=== PATIENT | female | born 1985 | race Caucasian/White ===

== ENCOUNTER 2022-02-14 10:00 | Inpatient (IN) | payer BC ==
[2022-02-14] MEDS ORDERED: CITRIC ACID/SODIUM CITRATE 30 ML UNIT-DOSE CUP PO ONE (10:33)
[2022-02-14] MEDS: ELECTROLYTE-148 SOLN 1,000 ML IV SCH (11:00)
[2022-02-14 12:18] VITALS: BMI 31.7
[2022-02-14] MEDS ORDERED: OXYTOCIN 20 UNITS in 0.9% NS 40 UNIT/2,000 ML INFUS.BAG IV ONE (13:00)
[2022-02-14] MEDS ORDERED: MIDAZOLAM HCL 2 MG/2 ML SINGLE DOSE VIAL ONE (13:02)
[2022-02-14] MEDS ORDERED: ONDANSETRON 4 MG/2 ML VIAL ONE (13:02)
[2022-02-14] MEDS ORDERED: CLINDAMYCIN PHOSPHATE 900 MG/6 ML VIAL IVPB ONE (13:02)
[2022-02-14] MEDS ORDERED: morphine SULFATE/PF 1 MG/2 ML (2cc Syringe - QUVA) ONE (13:02)
[2022-02-14] MEDS ORDERED: METOCLOPRAMIDE HCL INJECTION 10 MG/2 ML VIAL ONE (13:02)
[2022-02-14] MEDS ORDERED: ONDANSETRON 4 MG/2 ML VIAL IVPUSH PRN (14:12)
[2022-02-14] MEDS ORDERED: ACETAMINOPHEN 1000 MG/100 ML BAG IVPB PRN (14:13)
[2022-02-14] MEDS ORDERED: IBUPROFEN 800 MG/8 ML IJ IVPB PRN (14:13)
[2022-02-14] MEDS ORDERED: METHYLERGONOVINE MALEATE 0.2 MG/1 ML AMP IM PRN (14:26)
[2022-02-14] MEDS ORDERED: ACETAMINOPHEN 325 MG TABLET (FP) PO PRN (14:26)
[2022-02-14 15:02] LABS: CORD BASE EXCESS -4.1 mmol/L (0-2); CORD HCO3 20.8 mmHg (20-29); CORD PCO2 37.8 mmHg (30-78); CORD pH 7.359 (7.14-7.44)
[2022-02-14 15:05] LABS: CORD HCO3 21.5 mmHg (20-29); CORD PCO2 45.5 mmHg (30-78); CORD pH 7.292 (7.14-7.44)
[2022-02-14] MEDS: OXYTOCIN 20 UNITS in 0.9% NS 20 UNIT/1,000 ML INFUS.BAG IV SCH (16:14)
[2022-02-14] MEDS ORDERED: OXYTOCIN 20 UNITS in 0.9% NS 20 UNIT/1,000 ML INFUS.BAG IV ONE (16:15)
[2022-02-14] MEDS ORDERED: CLINDAMYCIN 600MG PREMIX IVPB 600 MG/50 ML BAG IVPB SCH (18:00)
[2022-02-14] MEDS: CLINDAMYCIN 600MG PREMIX IVPB 600 MG/50 ML BAG IVPB SCH (18:30)
[2022-02-14] MEDS: INSULIN SLIDING SCALE (NOVOLOG) 1 VIAL SQ SCH ×2 (18:35→22:04)
[2022-02-15] MEDS: CLINDAMYCIN 600MG PREMIX IVPB 600 MG/50 ML BAG IVPB SCH ×2 (01:38→10:05)
[2022-02-15] MEDS: OXYTOCIN 20 UNITS in 0.9% NS 20 UNIT/1,000 ML INFUS.BAG IV SCH (01:40)
[2022-02-15] MEDS ORDERED: oxyCODONE HCL 5 MG TABLET PO PRN (02:27)
[2022-02-15] MEDS: LEVOTHYROXINE NA 112 MCG TABLET (FP) PO SCH (06:33)
[2022-02-15] MEDS: INSULIN SLIDING SCALE (NOVOLOG) 1 VIAL SQ SCH ×4 (06:34→21:18)
[2022-02-15 07:27] LABS: BASO % 0.2 % (0-2.0); EOS % 0.2 % (0-4.5); HEMATOCRIT 34.4 % (32.4-45.2); HEMOGLOBIN 11.6 GM/dL (10.7-15.3); LYMPH % 18.4 % (8-40); MCH 28.1 pg (25.7-33.7); MCHC 33.6 g/dl (32.0-36.0); MEAN CELL VOLUME 83.6 fl (80-96); MEAN PLT VOLUME 8.5 fl (7.5-11.1); MONO % 7.2 % (3.8-10.2); PLATELET COUNT 265 10^3/uL (134-434); RBC 4.11 M/mm3 (3.60-5.2); RDW 13.8 % (11.6-15.6); WHITE BLOOD COUNT 11.9 K/mm3 (4.0-10.0)
[2022-02-15] MEDS: ENOXAPARIN NA (PORCINE) 40 MG/0.4 ML DISP.SYRIN SQ SCH (10:05)
[2022-02-15] MEDS: oxyCODONE HCL 5 MG TABLET PO PRN ×2 (10:13→22:01)
[2022-02-15] MEDS: SIMETHICONE 80 MG TAB.CHEW (FP) PO PRN ×3 (10:13→22:01)
[2022-02-15] MEDS: ELECTROLYTE-148 SOLN 1,000 ML IV SCH (11:28)
[2022-02-15] MEDS ORDERED: BISACODYL 10 MG SUPP.RECT RC PRN (14:27)
[2022-02-15] MEDS: IBUPROFEN 600 MG TABLET (FP) PO PRN (17:24)
[2022-02-16] MEDS: IBUPROFEN 600 MG TABLET (FP) PO PRN ×4 (00:56→17:41)
[2022-02-16] MEDS: SIMETHICONE 80 MG TAB.CHEW (FP) PO PRN ×4 (00:58→21:59)
[2022-02-16] MEDS: LEVOTHYROXINE NA 112 MCG TABLET (FP) PO SCH (06:52)
[2022-02-16] MEDS: INSULIN SLIDING SCALE (NOVOLOG) 1 VIAL SQ SCH ×4 (08:44→22:10)
[2022-02-16] MEDS: ENOXAPARIN NA (PORCINE) 40 MG/0.4 ML DISP.SYRIN SQ SCH (11:26)
[2022-02-16] MEDS ORDERED: PANTOPRAZOLE 20 MG TABLET PO PRN (15:49)
[2022-02-16] MEDS: oxyCODONE HCL 5 MG TABLET PO PRN (21:59)
[2022-02-17] MEDS: IBUPROFEN 600 MG TABLET (FP) PO PRN ×2 (03:04→08:00)
[2022-02-17] MEDS: SIMETHICONE 80 MG TAB.CHEW (FP) PO PRN ×2 (03:05→08:01)
[2022-02-17] MEDS: LEVOTHYROXINE NA 112 MCG TABLET (FP) PO SCH (06:31)
[2022-02-17] MEDS ORDERED: metFORMIN HCL 500 MG TABLET (FP) PO SCH (07:00)
[2022-02-17 07:29] LABS: BASO % 0.3 % (0-2.0); EOS % 2.2 % (0-4.5); HEMATOCRIT 32.7 % (32.4-45.2); HEMOGLOBIN 10.9 GM/dL (10.7-15.3); LYMPH % 18.5 % (8-40); MCH 27.9 pg (25.7-33.7); MCHC 33.3 g/dl (32.0-36.0); MEAN CELL VOLUME 83.8 fl (80-96); MONO % 6.8 % (3.8-10.2); NEUT % 72.2 % (42.8-82.8); PLATELET COUNT 327 10^3/uL (134-434); WHITE BLOOD COUNT 9.2 K/mm3 (4.0-10.0)
[2022-02-17] MEDS: ENOXAPARIN NA (PORCINE) 40 MG/0.4 ML DISP.SYRIN SQ SCH (09:06)
[2022-02-17 10:20] VITALS: BP 129/89; PULSE 75; TEMP 99
== END 2022-02-17 11:50 | disposition home or self-care (01) | DRG 787 ==
LOC: JLDR 10:00 → J3W 17:01
PROVIDERS: ADMIT Obstetrics & Gynecology; ATTEND Obstetrics & Gynecology
PROC: 10D00Z1 Extraction of Products of Conception, Low, Open Approach (ICD-10-PCS; principal; 2022-02-14)
DX: O34.211 Maternal care for low transverse scar from previous cesarean delivery (principal); O10.92 Unspecified pre-existing hypertension complicating childbirth; O24.913 Unspecified diabetes mellitus in pregnancy, third trimester; O99.284 Endocrine, nutritional and metabolic diseases complicating childbirth; E03.9 Hypothyroidism, unspecified; Z79.4 Long term (current) use of insulin; Z3A.38 38 weeks gestation of pregnancy; Z37.0 Single live birth
CPT/HCPCS: 36415; 36600; 82803; 82962; 85025; 88307-TC

== ENCOUNTER 2022-02-27 11:33 | Emergency (ER) | payer BC ==
[2022-02-27 11:44] VITALS: TEMP 98.6; BMI 27.9
[2022-02-27] MEDS ORDERED: ACETAMINOPHEN 1000 MG/100 ML BAG IVPB ONE (15:22)
[2022-02-27 16:02] LABS: BASO % 0.3 % (0-2.0); EOS % 0.6 % (0-4.5); HEMATOCRIT 38.9 % (32.4-45.2); LYMPH % 31.3 % (8-40); MCH 27.1 pg (25.7-33.7); MCHC 33.3 g/dl (32.0-36.0); MEAN CELL VOLUME 81.4 fl (80-96); MEAN PLT VOLUME 6.7 fl (7.5-11.1); MONO % 4.6 % (3.8-10.2); NEUT % 63.2 % (42.8-82.8); PLATELET COUNT 456 10^3/uL (134-434); RBC 4.78 M/mm3 (3.60-5.2); RDW 13.9 % (11.6-15.6); WHITE BLOOD COUNT 8.6 K/mm3 (4.0-10.0)
[2022-02-27 16:21] LABS: CHLORIDE 105 mmol/L (98-107); SODIUM 134 mmol/L (136-145)
[2022-02-27 16:24] LABS: BLOOD UREA NITROGEN 11.2 mg/dL (7-18); CALCIUM 9.6 mg/dL (8.5-10.1); CO2 25 mmol/L (21-32); GLUCOSE,RANDOM 76 mg/dL (74-106)
[2022-02-27 16:25] LABS: ALBUMIN 3.3 g/dl (3.4-5.0)
[2022-02-27 16:28] LABS: CREATININE 0.7 mg/dL (0.55-1.3); SGOT/AST 63 U/L (15-37); SGPT/ALT 30 U/L (13-61)
[2022-02-27 16:29] LABS: BILIRUBIN,TOTAL 0.9 mg/dL (0.2-1)
[2022-02-27 16:30] LABS: ALK PHOS 109 U/L (45-117)
[2022-02-27 16:40] LABS: ANION GAP 5 MMOL/L (8-16)
[2022-02-27] MEDS ORDERED: ACETAMINOPHEN INJECTION 100 ML IVPB ONE (17:35)
[2022-02-27 18:10] LABS: EPI CELLS 7 /uL (0-25.1); HYALINE CASTS 1 /uL (0-3.1); PH,URINE 7.5 (5.0-8.0); URINE APPEARANCE CLEAR; URINE BACTERIA 14 /uL (0-1359); URINE BILIRUBIN NEGATIVE (NEGATIVE); URINE COLOR YELLOW; URINE GLUCOSE (UA) NEGATIVE (NEGATIVE); URINE KETONE 2+ (NEGATIVE); URINE LEUK ESTERASE 1+ (NEGATIVE); URINE NITRITE NEGATIVE (NEGATIVE); URINE PROTEIN NEGATIVE (NEGATIVE); URINE RBC 73 /uL (0-23.9); URINE UROBILINOGEN 0.2 mg/dL (0.2-1.0); URINE WBC 64 /uL (0-25.8)
[2022-02-27 18:23] LABS: BLOOD UREA NITROGEN 11.2 mg/dL (7-18); CALCIUM 9.2 mg/dL (8.5-10.1)
[2022-02-27 18:27] LABS: CREATININE 0.7 mg/dL (0.55-1.3)
[2022-02-27 19:01] VITALS: BP 121/92; PULSE 86
== END 2022-02-27 18:55 | disposition home or self-care (01) ==
LOC: JER 11:33
PROC: 3E033GC Introduction of Other Therapeutic Substance into Peripheral Vein, Percutaneous Approach (ICD-10-PCS; principal; 2022-02-27)
DX: N39.0 Urinary tract infection, site not specified (principal)
CPT/HCPCS: 36415; 71046-TC-FY; 76830-TC; 80048; 80053; 81003; 85025; 93971-TC; 99284-25